=== PATIENT | female | born 1990 | race Two or more races ===

== ENCOUNTER 2017-08-06 21:06 | Emergency (ER) | payer MEDICAID, OTHER ==
[~2017-08-06 21:06] MED LIST: IRON325T PO; NAPR500 PO; OMPR20CCR PO; PRED10 PO; RIVA20 PO
== END 2017-08-06 21:52 | disposition left against medical advice (07) ==
LOC: NED 21:06
DX: Z03.89 Encounter for observation for other suspected diseases and conditions ruled out (principal)
CPT/HCPCS: 99281